=== PATIENT | female | born 1985 | race Caucasian/White ===

== ENCOUNTER 2019-11-18 17:37 | Emergency (ER) | payer MEDICAID ==
[~2019-11-18] VITALS: Ht 167.6 cm; Wt 91.2 kg
[2019-11-18 18:17] VITALS: Ht 167.6 cm; Wt 91.2 kg
[2019-11-18 21:08] VITALS: BP 125/70
== END 2019-11-18 21:08 | disposition home or self-care (01) ==
LOC: ED 17:37
DX: H10.32 Unspecified acute conjunctivitis, left eye (principal)